=== PATIENT | male | born 1955 | race Caucasian/White ===

== ENCOUNTER → 2016-05-28 | Outpatient (CLI) | payer OTHER ==
[~2016-05-28] MED LIST: B-100 COMPLEX1 EACH PO; CLOPIDOGREL75 MG PO; DICLOFENAC SODI75 MG PO; KEFLEX500 MG PO; LISINOPRIL10 MG PO; NEURONTIN100 MG PO; NORCO 10/3251 TABLET PO; NORCO 5/3251 TABLET PO; PERCOCET 5/31 TABLET PO; SIMVASTATIN20 MG PO
== END | disposition home or self-care (01) ==
LOC: AMB 12:53
DX: M54.5 Low back pain (principal); M47.896 Other spondylosis, lumbar region; M48.06 Spinal stenosis, lumbar region
CPT/HCPCS: 62304; 72132